=== PATIENT | male | born 1990 | race Caucasian/White ===

== ENCOUNTER → 2023-05-28 18:34 | Outpatient (CLI) | payer OTHER, MEDICAID, SELFPAY ==
--- NOTE | 2023-05-28 18:38 | DI.RAD.S_ITS ---
PROCEDURE: XR CHEST 2V INDICATIONS: persistent cough with fevers TECHNIQUE: 2 views of the chest were acquired. COMPARISON: None. FINDINGS: Surgical changes and devices: None. Lungs and pleura: Lungs are clear. No pleural effusions or pneumothorax. Mediastinum: Mediastinal contours are normal. Heart size is normal. Bones and chest wall: No suspicious bony abnormalities. Soft tissues appear unremarkable. IMPRESSION: No acute cardiopulmonary abnormality is seen. Dictated by: Angel Palomino M.D. on 05/28/2023 at 18:59 Approved by: Angel Palomino M.D. on 05/28/2023 at 18:59
== END ==
LOC: RAD 18:37
PROVIDERS: Referring Provider Physician Assistant; Visit Provider Physician Assistant
DX: R05.9 Cough, unspecified (principal)
CPT/HCPCS: 71046